=== PATIENT | female | born 1980 | race Caucasian/White ===

== ENCOUNTER 2020-04-26 11:20 | Emergency (ER) | payer SELFPAY ==
[2020-04-26] MEDS ORDERED: hydroCHLOROthiazide 12.5 MG CAP PO ONE (11:38)
--- NOTE | 2020-04-26 11:43 | ED.PDOC ---
History of Present Illness - General Chief Complaint: General Stated Complaint: elevated BP and cough and sneezing Time Seen by Provider: 04/26/20 11:21 Source: patient, RN notes reviewed, Vital Signs reviewed Exam Limitations: no limitations - History of Present Illness Initial Comments: 39 yo F with hx of HTN comes in with cough, congestion, sinus pressure. Son was dx with covid 5 days prior. [place] like her BP was high, checked it at home 200/100 so came in for evaluation. no chest pain, shortness of breath, abdominal pain. Denies headache or change in vision. Allergies/Adverse Reactions: Allergies NO KNOWN ALLERGY Allergy (Verified 04/26/20 11:39) Home Medications: Ambulatory Orders Clonidine HCl [Clonidine Hydrochloride] 0.1 mg PO BID #30 tab 04/26/20 Potassium Chloride [Potassium Chloride ER] 20 meq PO DAILY #20 tab 04/26/20 Promethazine Tab [Phenergan Tablet] 25 mg PO BID PRN #14 tab 04/26/20 Review of Systems - Review of Systems Constitutional: States: malaise. Denies: chills, fever EENTM: States: nose congestion. Denies: tearing, ear pain, throat pain, mouth pain Respiratory: States: cough. Denies: short of breath Cardiology: Denies: chest pain, palpitations, syncope Gastrointestinal/Abdominal: Denies: abdominal pain, diarrhea, vomiting Genitourinary: Denies: dysuria, frequency Musculoskeletal: Denies: back pain, joint pain Skin: Denies: rash Neurological: Denies: headache, numbness, paresthesia, pre-existing deficit, seizure Endocrine: Denies: unexplained weight gain, unexplained weight loss Hematologic/Lymphatic: Denies: blood clots, easy bleeding, easy bruising Past Medical History (General) - Patient Medical History Hx Seizures: No Hx Stroke: No Hx Dementia: No Hx Asthma: No Hx of COPD: No Hx Cardiac Disorders: No Hx Congestive Heart Failure: No Hx Pacemaker: No Hx Hypertension: Yes Hx Thyroid Disease: No Hx Diabetes: No Hx Gastroesophageal Reflux: No Hx Renal Disease: No Hx Cancer: No Hx of HIV: No Hx Hepatitis B: No Hx Hepatitis C: No Hx MRSA: No Hx Other PMH: No Family Medical History - Family History Father Hx Family Congestive Heart Failure: No Hx Family Diabetes: Yes Mother Hx Family Hypertension: Yes Physical Exam - Physical Exam General Appearance: Alert, Comfortable, No apparent distress, Well Developed, Well Groomed, Well Hydrated, Well Nourished Eye Exam: bilateral normal Ears, Nose, Throat: hearing grossly normal, normal ENT inspection Neck: non-tender, full range of motion, supple, normal inspection Respiratory: chest non-tender, lungs clear, normal breath sounds, no respiratory distress, no accessory muscle use Cardiovascular/Chest: normal peripheral pulses, regular rate, rhythm, no edema, no gallop, no JVD, no murmur Peripheral Pulses: radial,right: 2+, radial,left: 2+ Gastrointestinal/Abdominal: normal bowel sounds, non tender, soft, no organomegaly, no pulsatile mass Rectal Exam: deferred Back Exam: normal inspection, no CVA tenderness, no vertebral tenderness Extremity: normal range of motion, non-tender, normal inspection, no pedal edema, no calf tenderness, normal capillary refill Neurologic: 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 The history and assessments from nurses notes were reviewed and considered, and the patient's home medication list was also reviewed and considered. My assessment and the results of testing completed here in the ED were discussed with the patient/family. All questions were answered, and they express understanding of my assessment and the plan. They have been instructed to return if their symptoms worsen, and have been asked to follow up with their primary care physician to recheck today's presenting complaint. Strict return precautions given. I have reviewed medication, benefits, alternatives and side effects. Patient decided to proceed with medication. Savanna Bah DO #[id number] Laboratory Results WBC 4.8 K/mm3 (4.8-10.8) 04/26/20 11:44 RBC 4.98 M/mm3 (4.20-5.40) 04/26/20 11:44 Hgb 16.7 gm/dL (12.0-16.0) H 04/26/20 11:44 Hct 48.2 % (36.0-47.0) H 04/26/20 11:44 MCV 96.7 fl (81.0-99.0) 04/26/20 11:44 MCH 33.5 pg (27.0-31.0) H 04/26/20 11:44 MCHC 34.7 g/dL (33.0-37.0) 04/26/20 11:44 RDW 13.6 % (11.5-14.5) 04/26/20 11:44 Plt Count 201 K/mm3 (130-400) 04/26/20 11:44 MPV 9.2 fl (7.40-10.4) 04/26/20 11:44 Absolute Neuts (auto) 3.20 K/uL (1.8-6.8) 04/26/20 11:44 Absolute Lymphs (auto) 1.30 K/uL (1.0-3.4) 04/26/20 11:44 Absolute Monos (auto) 0.20 K/uL (0.2-0.8) 04/26/20 11:44 Absolute Eos (auto) 0.00 K/uL (0.0-0.4) 04/26/20 11:44 Absolute Basos (auto) 0.00 K/uL (0.0-0.1) 04/26/20 11:44 Neutrophils % 65.9 % (42.0-78.0) 04/26/20 11:44 Lymphocytes % 27.8 % (20.0-50.0) 04/26/20 11:44 Monocytes % 5.1 % (2.0-9.0) 04/26/20 11:44 Eosinophils % 0.3 % (1.0-5.0) L 04/26/20 11:44 Basophils % 0.9 % (0.0-2.0) 04/26/20 11:44 PT 10.4 SECONDS (9.0-10.9) 04/26/20 11:44 INR 1.05 (0.9-1.15) 04/26/20 11:44 PTT (SP) 25.6 SECONDS (21.8-31.6) 04/26/20 11:44 Sodium 137 mmol/L (135-145) 04/26/20 11:44 Potassium 3.1 mmol/L (3.6-5.0) L 04/26/20 11:44 Chloride 96 mmol/L (101-111) L 04/26/20 11:44 Carbon Dioxide 26 mmol/L (21-31) 04/26/20 11:44 Anion Gap 18.1 (12-18) H 04/26/20 11:44 BUN < 6 mg/dL (7-18) L 04/26/20 11:44 Creatinine 0.62 mg/dL (0.6-1.3) 04/26/20 11:44 BUN/Creatinine Ratio 9.7 (10-20) L 04/26/20 11:44 Random Glucose 109 mg/dL (70-105) H 04/26/20 11:44 Serum Osmolality 272.0 mOsm/L (275-295) L 04/26/20 11:44 Calcium 9.1 mg/dL (8.4-10.2) 04/26/20 11:44 Magnesium 2.1 mg/dL (1.8-2.5) 04/26/20 11:44 Total Bilirubin 0.8 mg/dL (0.2-1.0) 04/26/20 11:44 AST 18 IU/L (10-42) 04/26/20 11:44 ALT 15 IU/L (10-60) 04/26/20 11:44 Alkaline Phosphatase 90 IU/L (42-121) 04/26/20 11:44 Troponin I < 0.02 ng/mL (0.01-0.05) 04/26/20 11:44 B-Natriuretic Peptide < 15.0 pg/ml (0-100) 04/26/20 11:44 Serum Total Protein 8.3 gm/dL (6.4-8.2) H 04/26/20 11:44 Albumin 4.6 g/dl (3.2-5.5) 04/26/20 11:44 Globulin 3.7 gm/dL (2.3-3.5) H 04/26/20 11:44 Albumin/Globulin Ratio 1.2 (1.1-1.9) 04/26/20 11:44 TSH 1.77 uIU/mL (0.34-5.60) 04/26/20 11:44 04/26/20 13:56 repeat bp 160/100. - Results/Orders Results/Orders: Patient states she has abnormal reaction to prior bp meds, which include a rash. One prior medicine was carvediolol. Due to K will hold off on Hctz. Unsure if she has been on lisinopril. Will give K replacement 40 meq. I suspect worsening bp may be due to acute COVID illness. BP improved with clonidine here. Although MAYE/ARB may be better for prison management of her bp, I do not known if she has been on this previous or had abnormal reaction. Will give script for clonidine. with close follow up. - EKG/XRAY/CT EKG: Sinus Comments: NSR, normal intervals, no stemi Departure - Departure Clinical Impression: COVID-19, Hypertensive urgency Time of Disposition: 13:36 Disposition: Discharge to Home or Self Care Condition: Fair Departure Forms: ED Discharge - Pt. Copy, Patient Portal Self Enrollment Instructions: DASH Diet, High Blood Pressure (DC), Cough, Adult (DC), Controlling Your Blood Pressure Through Lifestyle Diet: low salt diet Activity: increase activity as tolerated Referrals: Chris Hay III, MD [Primary Care Provider] - 1-2 Days Prescriptions: Clonidine HCl [Clonidine Hydrochloride] 0.1 mg PO BID #30 tab Promethazine Tab [Phenergan Tablet] 25 mg PO BID PRN #14 tab PRN Reason: Nausea Potassium Chloride [Potassium Chloride ER] 20 meq PO DAILY #20 tab Home Medications: Ambulatory Orders Clonidine HCl [Clonidine Hydrochloride] 0.1 mg PO BID #30 tab 04/26/20 Potassium Chloride [Potassium Chloride ER] 20 meq PO DAILY #20 tab 04/26/20 Promethazine Tab [Phenergan Tablet] 25 mg PO BID PRN #14 tab 04/26/20
[2020-04-26 11:44] VITALS: TEMP 97.4; O2SAT 97
[2020-04-26] MEDS ORDERED: POTASSIUM CHLORIDE ELIXIR 20 MEQ/15 ML UD PO ONE (12:02)
[2020-04-26] MEDS ORDERED: ONDANSETRON ODT 8 MG TAB SL ONE (12:12)
[2020-04-26] MEDS ORDERED: cloNIDine HCL 0.1 MG TAB PO ONE ×2 (12:19→12:56)
--- NOTE | 2020-04-26 12:23 | RAD ---
EXAM: Chest,1 View CLINICAL INDICATION: Cough COMPARISON: There is no previous study for comparison. FINDINGS: A single view of the chest was obtained. The heart size is normal. The pulmonary vascularity is unremarkable. The lungs are clear. There is no consolidation, infiltrate, pleural effusion, or pneumothorax. IMPRESSION: Normal chest radiograph. Electronically signed by: Alex Yarbrough MD 04/26/2020 12:21 PM [facility]
[2020-04-26] MEDS ORDERED: DEXAMETHASONE 4 MG TAB PO ONE (13:36)
[2020-04-26 13:58] VITALS: BP 164/114
== END 2020-04-26 13:58 | disposition home or self-care (01) ==
LOC: ER 11:20
DX: U07.1 COVID-19 (principal); I16.0 Hypertensive urgency; Z79.899 Other long term (current) drug therapy
CPT/HCPCS: 36415; 71045; 80053; 83735; 83880; 84443; 84484; 85025; 85610; 85730; 87635; J8540